=== PATIENT | female | born 1990 ===

== ENCOUNTER 2017-10-22 03:29 | Emergency (ER) | payer BC, MEDICAID ==
[2017-10-22 03:30] VITALS: BMI 37.7
[2017-10-22 03:42] VITALS: BP 120/65; PULSE 88; RESP 16; TEMP 98.4; O2SAT 100
[2017-10-22] MEDS ORDERED: Sodium Chloride 0.9% 1,000 ML IV STA (04:15)
--- NOTE | 2017-10-22 04:18 | ED PDOC ---
HPI: Abdomen History Per: Patient History/Exam Limitations: no limitations Onset/Duration Of Symptoms: Days, Intermittent Episodes, Worse Since Severity: Severe Pain Scale Rating Of: 8 Location Of Pain/Discomfort: RLQ Quality Of Discomfort: Sharp, Cramping Associated Symptoms: Diarrhea (2x diarrhea with blood ). denies: Fever, Chills , Nausea, Vomiting Exacerbating Factors: Movement Alleviating Factors: None Last Bowel Movement: Today Abnormal Vaginal Bleeding: No <Cathy Ponce - Last Filed: 10/22/17 06:08> <Camilla Aquino Y - Last Filed: 10/23/17 03:12> Time Seen by Provider: 10/22/17 03:36 Chief Complaint (Nursing): Abdominal Pain Additional Complaint(s): CC: Abdominal pain and blood with stool HPI: 27 YO 5 weeks Female with no sig PMH; presents to [facility] ED for abdominal pain and bloody diarrhea. Per pt, the pain started about 2 weeks ago and was initially intermittent episodes, low severity. She went to the ED on 10/09 where she had a CT abdomen which showed enterocolitis and pt was d/c home with follow up. Pain remained, and over the past 24 hrs worsened with the addition of bloody diarrhea. Currently rates the pain as a 9/10, worse with movement, nothing makes the pain any better. Pt has good appetite, no recent changes in diet. Denies chest pain, dyspnea, n/v/c. Last [facility] 986.24 Transvaginal u/s (10/15): complex mass right ovary. PMH: denies SurgHx: denies SH: denies smoking, ETOH and illicit drug use FH: denies Allergies: asa, diphenhydramine, hydrocodone, ibuprofen, morphine Meds: none (Kris,Cathy) - AMA Patient Left Against Medical Advice: The patient declines admission to the hospital and wishes to leave the Emergency Department. This action is against my medical advice. This decision was made with informed refusal. The patient was told that admission to the hospital is necessary. Explanation of the reasons why were discussed. The risks of leaving were explained to the patient and include, but are not limited to, worsening of known or currently unknown conditions, permanent disability and from undiagnosed or untreated conditions. The patient has the capacity to make this informed decision and understands my explanation of the current medical problem and risks of leaving. The patient voluntarily accepts these risks and signed an AMA form documenting our conversation. The patient was given the opportunity to ask questions and reconsider. The patient was encouraged to return to the Emergency Department at any time for further care. Past Medical History - Medical History PMH: No Chronic Diseases Denies: Chronic Kidney Disease - Surgical History Surgical History: No Surg Hx - Family History Family History: States: No Known Family Hx - Living Arrangements Living Arrangements: With Family - Social History Current smoker - smoking cessation education provided: No Alcohol: None Drugs: Denies - Immunization History Hx Tetanus Toxoid Vaccination: No Hx Influenza Vaccination: No Hx Pneumococcal Vaccination: No <Cathy Ponce - Last Filed: 10/22/17 06:08> <Camilla Aquino - Last Filed: 10/23/17 03:12> Vital Signs: Last Vital Signs Temp 98.4 F 10/22/17 03:38 Pulse 88 10/22/17 03:38 Resp 16 10/22/17 03:38 BP 120/65 10/22/17 03:38 Pulse Ox 100 10/22/17 06:09 - Home Medications Home Medications: Ambulatory Orders Medication Instructions Recorded Ondansetron ODT [Zofran ODT] 4 mg PO Q4H PRN #7 odt 10/10/17 - Allergies Allergies/Adverse Reactions: Allergies Allergy/AdvReac Type Severity Reaction Status Date / Time aspirin Allergy RASH Verified 10/09/17 22:25 diphenhydramine Allergy RASH Verified 10/09/17 22:25 [From Benadryl] hydrocodone [From Vicodin] Allergy RASH Verified 10/09/17 22:25 ibuprofen Allergy RASH Verified 10/09/17 22:25 morphine Allergy RASH Verified 10/09/17 22:25 Review of Systems Constitutional: Negative for: Fever, Chills Eyes: Negative for: Pain, Vision Change Cardiovascular: Negative for: Chest Pain, Palpitations Respiratory: Negative for: Cough, Shortness of Breath Gastrointestinal: Positive for: Abdominal Pain (RLQ ), Diarrhea, Other (BBPR). Negative for: Nausea, Vomiting Genitourinary Female: Negative for: Dysuria, Frequency Neurological: Negative for: Weakness, Numbness Psych: Negative for: Anxiety <Cathy Ponce - Last Filed: 10/22/17 06:08> Physical Exam - Physical Exam Appears: Positive for: In Acute Distress Head Exam: Positive for: ATRAUMATIC, NORMAL INSPECTION, NORMOCEPHALIC Skin: Positive for: Normal Color, Warm, Dry Eye Exam: Positive for: Normal appearance, EOMI Neck: Positive for: Normal, Painless ROM Cardiovascular/Chest: Positive for: Regular Rate, Rhythm. Negative for: Murmur Respiratory: Positive for: Normal Breath Sounds. Negative for: Wheezing Gastrointestinal/Abdominal: Positive for: Normal Exam, Bowel Sounds, Soft, Tenderness (tenderness to palpation in RLQ), Other (neg psoas, neg obturator, neg murphys). Negative for: Mass, Distended, Rebound Extremity: Positive for: Normal ROM. Negative for: Pedal Edema Neurologic/Psych: Positive for: Alert, Oriented <Cathy Ponce - Last Filed: 10/22/17 06:08> - Laboratory Results Result Diagrams: 10/22/17 04:50 10/22/17 04:50 - ECG O2 Sat by Pulse Oximetry: 100 <Cathy Ponce - Last Filed: 10/22/17 06:08> - Laboratory Results Result Diagrams: 10/22/17 04:50 10/22/17 04:50 <Camilla Aquino - Last Filed: 10/23/17 03:12> - Progress ED Course And Treament: 27 YO Female currently 5 wks is seen in ED for RLQ abdominal pain. -CBC -CMP -BHCG -Transvag u/s -Tylenol -IV fluids (Cathy Ponce) Medical Decision Making <Cathy Ponce - Last Filed: 10/22/17 06:08> <Camilla Aquino - Last Filed: 10/23/17 03:12> Medical Decision Making: pt pregantn signing out ama. refusing imaging (Camilla Aquino) Disposition - Disposition Disposition Time: 06:09 <Cathy Ponce - Last Filed: 10/22/17 06:08> - Patient ED Disposition Is Patient to be Admitted: No - Disposition Disposition: Against Medical Advice <Camilla Aquino Y - Last Filed: 10/23/17 03:12> - Clinical Impression Clinical Impression: Abdominal pain, Left against medical advice - Disposition Condition: STABLE Additional Instructions: follow up with your doctor as soon as possble return to ER if you want to complete imagin and workup Instructions: Against Medical Advice (ED) Forms: [employer] (Malay)
[2017-10-22 04:54] LABS: BASO # 0.1 K/uL (0.0-0.2); BASO % 0.9 % (0.0-2.0); EOS # 0.1 K/uL (0.0-0.7); EOS % 0.9 % (0.0-4.0); HEMOGLOBIN 12.6 g/dL (12.0-16.0); LYMPH # 3.3 K/uL (1.0-4.3); LYMPH % 26.7 % (20.0-40.0); MEAN CELL VOLUME 86.1 fl (81.0-99.0); MEAN CORPUSCULAR HEMOGLOBIN 28.7 pg (27.0-31.0); MEAN CORPUSCULAR HGB CONC 33.3 g/dL (33.0-37.0); MEAN PLATELET VOLUME 7.3 fl (7.2-11.7); MONO # 0.9 K/uL (0.0-0.8); MONO % 6.9 % (0.0-10.0); NEUT % 64.6 % (50.0-75.0); NRBC % 0.1 % (0.0-0.0); RBC 4.41 Mil/uL (3.80-5.20); RED CELL DISTRIBUTION WIDTH 13.5 % (11.5-14.5); WHITE BLOOD COUNT 12.4 K/uL (4.8-10.8)
[2017-10-22 05:03] LABS: ALB/GLOB RATIO 1.5 (1.0-2.1); ALBUMIN 4.5 g/dL (3.5-5.0); ALT/SGPT 51 U/L (9-52); AST/SGOT 27 U/L (14-36); BLOOD UREA NITROGEN 8 mg/dl (7-17); GFR AFRICAN-AMERICAN > 60; GFR NON-AFRICAN AMERICAN > 60
== END 2017-10-22 06:20 | disposition home or self-care (01) ==
LOC: H.ER 03:29
DX: O26.899 Other specified pregnancy related conditions, unspecified trimester (principal); Z88.5 Allergy status to narcotic agent; Z88.6 Allergy status to analgesic agent; K52.9 Noninfective gastroenteritis and colitis, unspecified
CPT/HCPCS: 80053; 84702; 85025; 99283; J7040

== ENCOUNTER 2017-12-07 10:43 | Emergency (ER) | payer BC, MEDICAID ==
[2017-12-07 11:00] VITALS: BMI 38.7
[2017-12-07 11:01] VITALS: BP 119/74; PULSE 78; RESP 20; TEMP 98.2; O2SAT 98
--- NOTE | 2017-12-07 11:48 | ED PDOC ---
HPI: CCC, URI, Sore Throat Time Seen by Provider: 12/07/17 11:20 Chief Complaint (Nursing): Abdominal Pain Chief Complaint (Provider): Sore throat, cough History Per: Patient History/Exam Limitations: no limitations Onset/Duration Of Symptoms: Days (7) Additional Complaint(s): Pt @ 12 weeks presents with c/o sore throat and productive cough X 1 week. Denies fever, CP, SOB, palpitations, nausea, vomiting, abdominal pain, dysuria , hematuria, vaginal bleeding. Past Medical History Reviewed: Nursing Documentation, Vital Signs Vital Signs: Last Vital Signs Temp 98.2 F 12/07/17 11:01 Pulse 78 12/07/17 11:01 Resp 20 12/07/17 11:01 BP 119/74 12/07/17 11:01 Pulse Ox 98 12/07/17 11:49 - Medical History PMH: No Chronic Diseases Denies: Chronic Kidney Disease - Family History Family History: States: Unknown Family Hx - Living Arrangements Living Arrangements: With Family - Social History Current smoker - smoking cessation education provided: No - Immunization History Hx Tetanus Toxoid Vaccination: No Hx Influenza Vaccination: No Hx Pneumococcal Vaccination: No - Home Medications Home Medications: Ambulatory Orders Medication Instructions Recorded Ondansetron ODT [Zofran ODT] 4 mg PO Q4H PRN #7 odt 10/10/17 Azithromycin [Zithromax] 500 mg PO DAILY #6 tab 12/07/17 - Allergies Allergies/Adverse Reactions: Allergies Allergy/AdvReac Type Severity Reaction Status Date / Time aspirin Allergy RASH Verified 10/09/17 22:25 diphenhydramine Allergy RASH Verified 10/09/17 22:25 [From Benadryl] hydrocodone [From Vicodin] Allergy RASH Verified 10/09/17 22:25 ibuprofen Allergy RASH Verified 10/09/17 22:25 morphine Allergy RASH Verified 10/09/17 22:25 Review of Systems Constitutional: Negative for: Fever, Chills Cardiovascular: Negative for: Chest Pain, Palpitations Respiratory: Positive for: Cough, Sputum. Negative for: Shortness of Breath, Hemoptysis, SOB with Exertion, Pleuritic Pain, Wheezing Gastrointestinal: Negative for: Nausea, Vomiting, Abdominal Pain, Diarrhea Genitourinary Female: Negative for: Dysuria, Hematuria, Vaginal Discharge, Vaginal Bleeding Musculoskeletal: Negative for: Neck Pain, Back Pain Skin: Negative for: Rash, Lesions Neurological: Negative for: Headache, Dizziness Physical Exam - Reviewed Nursing Documentation Reviewed: Yes Vital Signs Reviewed: Yes - Physical Exam Appears: Positive for: Well, No Acute Distress (Speaking full sentences) Head Exam: Positive for: ATRAUMATIC, NORMAL INSPECTION Skin: Positive for: Normal Color, Warm, Dry Eye Exam: Positive for: Normal appearance, EOMI, PERRL ENT: Positive for: Pharynx Is (Clear). Negative for: Sinus Pain/Drainage, Nasal Congestion, Pharyngeal Erythema, Tonsillar Exudate, Tonsillar Swelling Cardiovascular/Chest: Positive for: Regular Rate, Rhythm Respiratory: Positive for: Normal Breath Sounds. Negative for: Rales, Rhonchi, Wheezing Gastrointestinal/Abdominal: Positive for: Normal Exam, Bowel Sounds, Soft. Negative for: Tenderness Extremity: Positive for: Normal ROM Neurologic/Psych: Positive for: Alert, crew leader II-XII, Oriented - ECG O2 Sat by Pulse Oximetry: 98 Medical Decision Making Medical Decision Makin yo female with sore throat and cough. - rapid Strep - Influenza A&B Pt refused CXR. Disposition - Clinical Impression Clinical Impression: URI (upper respiratory infection) - Patient ED Disposition Is Patient to be Admitted: No - Disposition Disposition: Routine/Home Disposition Time: 13:28 Condition: STABLE Additional Instructions: FOLLOW-UP WITH OB-SAFETY ATTENDANT WITHIN 2 DAYS FOR REEVALUATION. Prescriptions: Azithromycin [Zithromax] 500 mg PO DAILY #6 tab Instructions: Upper Respiratory Infection (ED) Forms: [employer] (Bulgarian) Print Language: NIGERIEN
== END 2017-12-07 14:31 | disposition home or self-care (01) ==
LOC: H.ER 10:43
DX: N39.0 Urinary tract infection, site not specified (principal)